=== PATIENT | male | born 1950 | race Two or more races ===

== ENCOUNTER 2021-10-19 09:51 | Inpatient (IN) | payer OTHER ==
[~2021-10-19] VITALS: Ht 170.2 cm; Wt 82.7 kg
[2021-10-19] MEDS: normal saline 1000ml 1,000 ML IV SCH ×2 (01:30→12:20)
--- NOTE | 2021-10-19 06:30 | NUR ---
Patient in room [facility] 353. I have received report from Kortney DENNEY and had the opportunity to ask questions and assume patient care.
[2021-10-19] MEDS ORDERED: normal saline 1000ML IV soln IVB ONE (10:20)
[2021-10-19] MEDS ORDERED: vancomycin/NS 1 GM ADD-VANTAGE 250 ML IV ONE (10:45)
[2021-10-19] MEDS ORDERED: piperacillin/tazo 3.375gm/50ml 50 ML IV ONE (10:45)
[2021-10-19 10:47] LABS: BASOPHILS % (AUTO) 0.3 % (0-1); EOSINOPHILS # (AUTO) 0.1 X10'3 (0-0.9); EOSINOPHILS % (AUTO) 1.1 % (0-6); HEMATOCRIT 39.7 % (42.0-52.0); LYMPHOCYTES # (AUTO) 0.5 X10'3 (1.1-4.8); LYMPHOCYTES % (AUTO) 6.8 % (21-51); MEAN CORPUSCULAR HEMOGLOBIN 30.4 PG (27.0-31.0); MEAN CORPUSCULAR HGB CONC 32.7 g/dL (33.0-36.5); MEAN PLATELET VOLUME 8.1 FL (7.4-10.4); MONOCYTES # (AUTO) 0.5 X10'3 (0-0.9); MONOCYTES % (AUTO) 6.8 % (2-12); PLATELET COUNT 238 X10'3 (140-440); RED BLOOD COUNT 4.27 X10'6 (4.70-6.10); RED CELL DISTRIBUTION WIDTH 14.1 % (11.5-14.5)
[2021-10-19 11:20] LABS: BILIRUBIN,TOTAL 0.2 MG/DL (0.1-1.0); BLOOD UREA NITROGEN 14 MG/DL (7-18); BUN/CREATININE RATIO 20.3 (5.4-32.0); CHLORIDE 107 MMOL/L (99-107); CREATININE 0.69 MG/DL (0.60-1.10); GLUCOSE 111 MG/DL (70-104); POTASSIUM 3.7 MMOL/L (3.5-5.1); SODIUM 142 MMOL/L (135-145); eGFR > 90 ML/MIN
[2021-10-19 11:21] LABS: ALANINE AMINOTRANSFERASE 30 U/L (12-78); ALBUMIN 3.1 G/DL (3.4-5.0); ALBUMIN/GLOBULIN RATIO 0.7 (1.1-1.5); ALKALINE PHOSPHATASE 127 IU/L (46-116); ASPARTATE AMINO TRANSFERASE 20 U/L (10-37); C-REACTIVE PROTEIN 0.55 MG/DL (0.0-0.5); CALCIUM 8.4 MG/DL (8.5-10.1); TOTAL CARBON DIOXIDE 30.3 MMOL/L (24-32); TOTAL PROTEIN 7.5 G/DL (6.4-8.2)
[2021-10-19 11:35] LABS: ANION GAP 5 (8-16)
[2021-10-19] MEDS ORDERED: HYDROcodone/acetaminophen 10/325mg tab PO PRN (12:20)
[2021-10-19] MEDS ORDERED: bisacodyl 10mg suppository rectal RC PRN (12:20)
[2021-10-19] MEDS ORDERED: magnesium 2GM in 50ml NS 50 ML IV PRN (12:20)
[2021-10-19] MEDS ORDERED: magnesium Cl slow-release 64mg tablet PO PRN (12:20)
[2021-10-19] MEDS ORDERED: ondansetron 4mg rapidly disintigrating tab PO PRN (12:20)
[2021-10-19] MEDS ORDERED: acetaminophen 650mg rectal suppository RC PRN (12:20)
[2021-10-19] MEDS ORDERED: magnesium 4gm in 100ml NS 100 ML IV PRN (12:20)
[2021-10-19] MEDS ORDERED: acetaminophen 325mg tablet PO PRN (12:20)
[2021-10-19] MEDS ORDERED: HYDROmorphone inj. 0.5 MG/0.5 ML DISP.SYRIN IV PRN (12:20)
[2021-10-19] MEDS ORDERED: ondansetron/PF 4mg/2ml inj IV PRN (12:20)
[2021-10-19] MEDS ORDERED: HYDROcodone/acetaminophen 5mg/325mg tablet PO PRN (12:20)
[2021-10-19] MEDS ORDERED: HYDROmorphone/PF 0.2 MG/ML SYRINGE IV PRN (12:20)
[2021-10-19] MEDS ORDERED: potassium Cl 20 mEq SR tablet PO PRN ×2 (12:20)
[2021-10-19] MEDS ORDERED: TETanus/Pertussis (Acell)/Diphther VAC/PF (Tdap-Adult) 0.5ml syringe IMVAC ONE (12:20)
[2021-10-19] MEDS ORDERED: magnesium hydroxide 30ml (MOM) UD suspension PO PRN (12:20)
[2021-10-19] MEDS ORDERED: metoclopramide 5 mg/ml inj IV PRN (12:20)
[2021-10-19] MEDS ORDERED: mag hydrox/Alum hydrox/simeth 30ml oral suspension PO PRN (12:20)
[2021-10-19] MEDS ORDERED: potassium CL 10mEq/100ml bag 100 ML IV PRN (12:20)
--- NOTE | 2021-10-19 13:04 | NUR ---
relieving RN for lunch, pt is refusing tetanus at this time, he is not sure when he last received tetanus shot and would like to follow up with his PMD, pt also asking for motrin "opoids make me itch", report to Deandre DENNEY
[2021-10-19] MEDS ORDERED: FINA5TAB11 PO (13:43)
[2021-10-19] MEDS ORDERED: TACR30OI4 TOP (13:43)
[2021-10-19] MEDS ORDERED: TRAZ-256 PO (13:43)
[2021-10-19] MEDS ORDERED: ALBU17AE26 PO (13:43)
[2021-10-19] MEDS ORDERED: CLOB15OI3 TOP (13:43)
[2021-10-19] MEDS ORDERED: AMLO1CAP23 PO (13:43)
[2021-10-19] MEDS ORDERED: SOFO1TAB PO (13:43)
[2021-10-19] MEDS ORDERED: FLO0.4C PO (13:43)
[2021-10-19] MEDS ORDERED: MIRA25TA PO (13:43)
--- NOTE | 2021-10-19 14:15 | NUR ---
NO PICS OF WOUND TAKEN CAMERA IS NOT WORKING.
--- NOTE | 2021-10-19 14:21 | NUR ---
CALLED TO GIVE REPORT BUT NURSE IS ON LUNCH AND CHARGE NURSE IS BUSY ,THEY WILL CALL US TO TAKE REPORT ,NOTIFIED OUR CHARGE.
--- NOTE | 2021-10-19 14:27 | NUR ---
Joshua burnette in [facility] - 10/19/21 at 1427 by MEHDI REPPATRICK MONTEZ AT THIS TIME.
--- NOTE | 2021-10-19 15:19 | NUR ---
Patient in room ED 13. I have received report from Deandre DENNEY and had the opportunity to ask questions and assume patient care.
[2021-10-19 15:52] VITALS: BP 119/57
[2021-10-19 16:19] LABS: MAGNESIUM 1.8 MG/DL (1.5-2.4); POTASSIUM 3.4 MMOL/L (3.5-5.1)
[2021-10-19] MEDS: acetaminophen 325mg tablet PO PRN (16:33)
[2021-10-19] MEDS: piperacillin/tazo 3.375gm/50ml 50 ML IV SCH ×2 (16:34→23:35)
--- NOTE | 2021-10-19 16:46 | NUR ---
PAGER ID: [phone] MESSAGE: Vivien Surg [id number] Re: [phone] Padmini would like Aquaphor for leg wound and would like Motrin for pain Addendum: 10/19/21 at 1647 by Vivien Cartwright RN Dr Charles is putting in orders for Motrin and he would like us to put in orders for the Aquaphor.
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
--- NOTE | 2021-10-19 18:34 | NUR ---
Problems reprioritized. Patient report given, questions answered & plan of care reviewed with Cecil DENNEY.
[2021-10-19 18:40] VITALS: BP 128/73
[2021-10-19] MEDS: docusate sod 100mg capsule PO SCH (19:45)
[2021-10-19] MEDS: tamsulosin 0.4mg capsule PO SCH (19:45)
[2021-10-19] MEDS: clobetasol propionate ointment 15gm TP SCH (19:46)
[2021-10-19] MEDS: mineral oil/pet hy-phy 85gm ointment TP SCH (19:46)
[2021-10-19] MEDS: [UNRECOGNIZED DRUG - OTHER] TP SCH (19:55)
[2021-10-19] MEDS: K and/or MAG REPLACEMENT MC SCH (20:00)
[2021-10-19] MEDS: albuterol 2.5 MG/3 ML nebule NEB PRN (20:26)
[2021-10-19] MEDS: finasteride 5mg tablet PO SCH (20:41)
[2021-10-19] MEDS: traZODone 50mg tablet PO SCH (20:41)
[2021-10-19] MEDS ORDERED: temazepam 15mg capsule PO PRN (21:00)
[2021-10-19] MEDS: VANCOMYCIN 1GM/200ML IVPB 200 ML IV SCH (23:35)
[2021-10-20 06:20] LABS: BASOPHILS % (AUTO) 0.4 % (0-1); EOSINOPHILS # (AUTO) 0.1 X10'3 (0-0.9); HEMATOCRIT 38.7 % (42.0-52.0); HEMOGLOBIN 12.8 g/dl (14.0-17.9); LYMPHOCYTES # (AUTO) 0.6 X10'3 (1.1-4.8); LYMPHOCYTES % (AUTO) 9.7 % (21-51); MEAN CORPUSCULAR HEMOGLOBIN 30.8 PG (27.0-31.0); MEAN CORPUSCULAR VOLUME 93.3 FL (78-98); MEAN PLATELET VOLUME 8.4 FL (7.4-10.4); MONOCYTES # (AUTO) 0.5 X10'3 (0-0.9); MONOCYTES % (AUTO) 8.6 % (2-12); NEUTROPHILS # (AUTO) 4.6 X10'3 (1.8-7.7); NEUTROPHILS % (AUTO) 79.3 % (42-75); PLATELET COUNT 218 X10'3 (140-440); RED BLOOD COUNT 4.15 X10'6 (4.70-6.10); RED CELL DISTRIBUTION WIDTH 14.4 % (11.5-14.5); WHITE BLOOD COUNT 5.8 X10'3 (4.5-11.0)
--- NOTE | 2021-10-20 06:30 | NUR ---
Patient in room [facility] 353. I have received report from FILIBERTO DENNEY and had the opportunity to ask questions and assume patient care.
--- NOTE | 2021-10-20 06:36 | NUR ---
Problems reprioritized. Patient report given, questions answered & plan of care reviewed with CLAUDE. Addendum: 10/20/21 at 0636 by Luisito Morales RN Amended: Links added.
[2021-10-20 06:46] LABS: ALANINE AMINOTRANSFERASE 25 U/L (12-78); ALBUMIN 2.5 G/DL (3.4-5.0); ALBUMIN/GLOBULIN RATIO 0.6 (1.1-1.5); ALKALINE PHOSPHATASE 89 IU/L (46-116); ANION GAP 8 (8-16); ASPARTATE AMINO TRANSFERASE 16 U/L (10-37); BILIRUBIN,TOTAL 0.3 MG/DL (0.1-1.0); BLOOD UREA NITROGEN 9 MG/DL (7-18); BUN/CREATININE RATIO 12.3 (5.4-32.0); CALCIUM 7.8 MG/DL (8.5-10.1); CHLORIDE 107 MMOL/L (99-107); CHOL/HDL RATIO 2.5 (0.00-4.99); CHOLESTEROL 163 MG/DL (0-200); CREATININE 0.73 MG/DL (0.60-1.10); GLUCOSE 97 MG/DL (70-104); HDL CHOLESTEROL 64 MG/DL (35-60); LDL CHOLESTEROL 87 MG/DL (50-100); MAGNESIUM 1.8 MG/DL (1.5-2.4); POTASSIUM 3.8 MMOL/L (3.5-5.1); SODIUM 141 MMOL/L (135-145); TOTAL CARBON DIOXIDE 26.4 MMOL/L (24-32); TOTAL PROTEIN 6.9 G/DL (6.4-8.2); TRIGLYCERIDES 67 MG/DL (20-135); eGFR > 90 ML/MIN
[2021-10-20] MEDS: K and/or MAG REPLACEMENT MC SCH ×2 (06:50→19:17)
[2021-10-20 07:00] VITALS: BP 118/79
[2021-10-20] MEDS: [UNRECOGNIZED DRUG - OTHER] TP SCH ×2 (08:00→19:18)
[2021-10-20] MEDS: normal saline 1000ml 1,000 ML IV SCH ×3 (08:20→21:08)
[2021-10-20] MEDS: piperacillin/tazo 3.375gm/50ml 50 ML IV SCH ×2 (08:33→16:04)
[2021-10-20] MEDS: docusate sod 100mg capsule PO SCH ×2 (08:39→19:23)
[2021-10-20] MEDS: lisinopril 10 MG tablet PO SCH (08:40)
[2021-10-20] MEDS: tamsulosin 0.4mg capsule PO SCH ×2 (08:41→19:22)
[2021-10-20] MEDS: amLODIPine 5mg tablet PO SCH (08:42)
[2021-10-20] MEDS: mirabegron 25mg ER tablet PO SCH (08:42)
[2021-10-20] MEDS: clobetasol propionate ointment 15gm TP SCH ×2 (08:43→20:30)
[2021-10-20] MEDS: mineral oil/pet hy-phy 85gm ointment TP SCH ×2 (08:43→19:18)
[2021-10-20] MEDS ORDERED: pneumococcal 23-VAL P-sac vacc 25 mcg/0.5ml vial IMVAC ONE (10:00)
[2021-10-20] MEDS: ibuprofen tablet 400 MG TABLET PO PRN (10:57)
[2021-10-20] MEDS: albuterol 2.5 MG/3 ML nebule NEB PRN (11:09)
[2021-10-20 11:16] VITALS: BP 120/75
[2021-10-20] MEDS: VANCOMYCIN 1GM/200ML IVPB 200 ML IV SCH (12:19)
--- NOTE | 2021-10-20 12:20 | NUR ---
Student Medication Administration:For this medication-pass time frame [id number], all medication were reviewed, administered and documented per hospital policy by Rhonda Hernandez. Student documentation:I have reviewed and agree with all interventions, assessments performed and documented by Rhonda Hernandez.
[2021-10-20] MEDS ORDERED: ALBUTEROL INHALER 1 PUFF/90 MCG INHALER IH PRN (13:35)
[2021-10-20] MEDS: predniSONE 20 mg tablet PO SCH (13:54)
--- NOTE | 2021-10-20 18:02 | NUR ---
Student documentation: I have reviewed and agree with all interventions, assessments performed and documented by Migdalia, chief nursing executive.
--- NOTE | 2021-10-20 18:03 | NUR ---
Student Medication Administration: For this medication-pass time frame, all medication were reviewed, dispensed, administered and documented per hospital policy by marissa Negron.
--- NOTE | 2021-10-20 18:30 | NUR ---
Problems reprioritized. Patient report given, questions answered & plan of care reviewed with FILIBERTO DENNEY.
[2021-10-20] MEDS: acetaminophen 325mg tablet PO PRN (18:57)
[2021-10-20 19:00] VITALS: BP 130/73
[2021-10-20] MEDS: finasteride 5mg tablet PO SCH (19:23)
[2021-10-20] MEDS ORDERED: VANCOMYCIN LEVEL IV ONE (23:30)
[2021-10-21] VITALS: BP 139/68
[2021-10-21] MEDS: traZODone 50mg tablet PO SCH (00:03)
[2021-10-21] MEDS: VANCOMYCIN 1GM/200ML IVPB 200 ML IV SCH (00:07)
[2021-10-21] MEDS: piperacillin/tazo 3.375gm/50ml 50 ML IV SCH ×2 (00:08→09:05)
[2021-10-21] MEDS: ibuprofen tablet 400 MG TABLET PO PRN (04:45)
[2021-10-21 06:18] LABS: BASOPHILS % (AUTO) 0.2 % (0-1); EOSINOPHILS % (AUTO) 0.1 % (0-6); HEMATOCRIT 38.3 % (42.0-52.0); HEMOGLOBIN 12.6 g/dl (14.0-17.9); LYMPHOCYTES # (AUTO) 0.7 X10'3 (1.1-4.8); LYMPHOCYTES % (AUTO) 5.8 % (21-51); MEAN CORPUSCULAR HEMOGLOBIN 30.5 PG (27.0-31.0); MEAN CORPUSCULAR HGB CONC 32.9 g/dL (33.0-36.5); MEAN CORPUSCULAR VOLUME 92.7 FL (78-98); MEAN PLATELET VOLUME 8.5 FL (7.4-10.4); MONOCYTES # (AUTO) 0.6 X10'3 (0-0.9); MONOCYTES % (AUTO) 5.2 % (2-12); NEUTROPHILS # (AUTO) 10.4 X10'3 (1.8-7.7); NEUTROPHILS % (AUTO) 88.7 % (42-75); PLATELET COUNT 244 X10'3 (140-440); RED BLOOD COUNT 4.13 X10'6 (4.70-6.10); RED CELL DISTRIBUTION WIDTH 14.4 % (11.5-14.5); WHITE BLOOD COUNT 11.8 X10'3 (4.5-11.0)
[2021-10-21 06:36] LABS: ALANINE AMINOTRANSFERASE 24 U/L (12-78); ALBUMIN 2.9 G/DL (3.4-5.0); ALBUMIN/GLOBULIN RATIO 0.7 (1.1-1.5); ALKALINE PHOSPHATASE 92 IU/L (46-116); ANION GAP 7 (8-16); ASPARTATE AMINO TRANSFERASE 14 U/L (10-37); BILIRUBIN,TOTAL 0.4 MG/DL (0.1-1.0); BLOOD UREA NITROGEN 10 MG/DL (7-18); BUN/CREATININE RATIO 14.7 (5.4-32.0); CALCIUM 7.9 MG/DL (8.5-10.1); CHLORIDE 107 MMOL/L (99-107); CREATININE 0.68 MG/DL (0.60-1.10); GLUCOSE 89 MG/DL (70-104); MAGNESIUM 1.7 MG/DL (1.5-2.4); POTASSIUM 3.6 MMOL/L (3.5-5.1); SODIUM 140 MMOL/L (135-145); TOTAL CARBON DIOXIDE 25.8 MMOL/L (24-32); TOTAL PROTEIN 7.1 G/DL (6.4-8.2); eGFR > 90 ML/MIN
--- NOTE | 2021-10-21 06:49 | NUR ---
Problems reprioritized. Patient report given, questions answered & plan of care reviewed with CLAUDE. Addendum: 10/21/21 at 0649 by Luisito Morales RN Amended: Links added.
[2021-10-21 07:00] VITALS: BP 115/68
[2021-10-21] MEDS: [UNRECOGNIZED DRUG - OTHER] TP SCH (08:00)
[2021-10-21] MEDS: mineral oil/pet hy-phy 85gm ointment TP SCH (08:00)
[2021-10-21] MEDS ORDERED: VANCOMYCIN 1GM/200ML IVPB 200 ML IV SCH (08:00)
[2021-10-21] MEDS: clobetasol propionate ointment 15gm TP SCH (08:00)
[2021-10-21] MEDS: K and/or MAG REPLACEMENT MC SCH (08:00)
[2021-10-21] MEDS: albuterol 2.5 MG/3 ML nebule NEB PRN (08:53)
[2021-10-21] MEDS: mirabegron 25mg ER tablet PO SCH (09:04)
[2021-10-21] MEDS: tamsulosin 0.4mg capsule PO SCH (09:04)
[2021-10-21] MEDS: lisinopril 10 MG tablet PO SCH (09:04)
[2021-10-21] MEDS: docusate sod 100mg capsule PO SCH (09:04)
[2021-10-21 09:05] VITALS: BP_SYST 115
[2021-10-21] MEDS: amLODIPine 5mg tablet PO SCH (09:05)
[2021-10-21] MEDS: predniSONE 20 mg tablet PO SCH (09:05)
[2021-10-21] MEDS: normal saline 1000ml 1,000 ML IV SCH (09:09)
[2021-10-21] MEDS ORDERED: ALBU8.5H17 IH (10:30)
[2021-10-21] MEDS ORDERED: AMOX-117 PO (10:30)
--- NOTE | 2021-10-21 13:21 | NUR ---
PT DISCHARGED IN STABLE CONDITION. LEFT FACILITY IN PRIVATE VEHICLE. 2 IVs DC CANULAS INTACT. PT AWARE HE HAS APPT IN [facility] 10/26/21 @ 0900. FOLLOW UP INSTRUCTIONS GIVEN, ALL QUESTIONS ANSWERED. ALL BELONGINGS IN HAND. Addendum: 10/21/21 at 1322 by Carrie Santana RN Amended: Links added.
[2021-10-21] MEDS ORDERED: VANCOMYCIN LEVEL IV ONE (23:30)
== END 2021-10-21 13:00 | disposition home or self-care (01) | DRG 603 ==
LOC: ER 09:52 → ED HOLD 12:31 → SUR 3N 15:27
PROVIDERS: ADMIT Family Medicine; ATTEND Family Medicine
DX: L03.115 Cellulitis of right lower limb (principal); L97.919 Non-pressure chronic ulcer of unspecified part of right lower leg with unspecified severity; I10 Essential (primary) hypertension; L40.9 Psoriasis, unspecified; J45.909 Unspecified asthma, uncomplicated; B95.4 Other streptococcus as the cause of diseases classified elsewhere; N40.0 Benign prostatic hyperplasia without lower urinary tract symptoms; I87.2 Venous insufficiency (chronic) (peripheral); B19.20 Unspecified viral hepatitis C without hepatic coma; L29.9 Pruritus, unspecified; Z87.891 Personal history of nicotine dependence; Z28.21 Immunization not carried out because of patient refusal; Z85.89 Personal history of malignant neoplasm of other organs and systems
CPT/HCPCS: 36415; 80053; 80061; 80202; 83735; 84132; 84145; 84443; 85025; 85651; 86140; 87081; 90715; 93922; 93925; 94640; 94664; 94760; 99285; G0378; J2543; J3370; J7030; J7512